=== PATIENT | female | born 1970 | race Caucasian/White ===

== ENCOUNTER 2017-12-09 13:53 | Emergency (ER) | payer MEDICAID, SELFPAY ==
[2017-12-09 14:00] VITALS: BP 127/86; PULSE 48; RESP 16; TEMP 36.4; O2SAT 99
--- NOTE | 2017-12-09 14:35 | ED.GENADUL_ITS ---
Discharge Plan Discharge Details Chief Complaint: Chest/Rib Clinical Impression: Contusion of rib on left side Reason For Visit: chest pain Primary Care Provider: ADILENE URBINA ED Provider: Malcolm Interiano Disposition Patient Disposition: HOME Condition: Stable Discharge Instructions Instructions: Rib Contusion (ED) Additional Instructions: if pain continues next week see your primary care provider return to the emergency department for severe worsening pain or new pain such as abdominal pain take 1000mg tylenol and 600mg ibuprofen every 6hours for pain as needed Discharge Data Discharge Physician: Malcolm Interiano Medical Decision Making MDM Narrative Medical decision making narrative: 47 yo female who denies chronic med problems who was on a ladder around 8pm only 1-2 steps when she fell and landed on her left chest, denies hitting her head or loc or vomit since. Has no abdominal pain or tenderness on exam so doubt splenic injury or other acute abdominal injury. Has pain with palpation to the left lateral chest likely due to contusion but will obtain xray to eval for fracture, less likely ptx given normal lung exam xray shows no acute findings, no other new symptoms. Will d/c home and advised she f/u with pcp if pain continues and return precautions given Differential Diagnosis rib contusion, rib fx, ptx Imaging Data Radiologic Study: Attestation: I personally reviewed and interpreted this imaging study as follows: Imaging: X-Ray (chest xray) My impression: no acute findings Radiologist's impression: vrad report reviewed HPI - General Adult General Mode of arrival: ambulatory . Date/Time Provider Initiated Documentation: 12/09/17 14:20 . Limitations to Documentation: no limitations . Information obtained by: patient . History of Present Illness 47 year old F presents to the emergency department with the chief complaint of left chest pain, described as mild, with intensity rated at 3. Quality is described as stabbing, and is localized to the chest. Patient reports no radiation. Patient started experiencing this day(s) (1) and it has been constant. No relieving factors improve symptom(s), No exacerbating factors reported . Patient notes no other symptoms.. Patient did receive the following treatments prior to arrival, NSAID General Stated Complaint: Chest/Rib ELIZABETH: 4 Review of Systems Review of Systems All systems reviewed & are unremarkable except as noted in HPI and below Constitutional Denies chills, Denies fever(s) and Denies weakness Eyes Patient Denies loss of vision ENT Denies change in voice Cardiovascular Reports chest pain and Denies dyspnea Respiratory Denies dyspnea Gastrointestinal Denies abdominal pain, Denies nausea and Denies vomiting Genitourinary Denies dysuria Musculoskeletal Denies joint swelling Integumentary/Breasts Denies rash Neurologic Denies loss of vision and Denies weakness Psychiatric Denies depression Endocrine Denies cold intolerance and Denies heat intolerance Allergic/Immunologic Reports urticaria PFSH Social History Smoking/Tobacco Use Status: Never Exam Const General: no acute distress Orientation: alert HENMT Head: normal to inspection Ears: external ears normal General nose exam: external nose normal Mouth: moist mucous membranes Eyes General: appearance normal, both eyes and all related structures Neck Neck: normal visual inspection Chest Chest: normal inspection of the chest and other (pain with palpation to the left lateral chest in mid axillary line) Resp Effort & Inspection: normal respiratory effort, able to speak in complete sentences, no audible wheezes, no cough, no respiratory distress and no use of accessory muscles Cardio Jugular venous pressure: no JVD Rate: regular rate Rhythm: regular rhythm Heart Sounds: no murmurs Skin General skin exam: no rashes or lesions noted Neuro General: alert and oriented x3 Extrem General: normal to inspection Psych Mental Status: mental status grossly normal Course Vital Signs Temperature 36.4 C L 12/09/17 14:00 Pulse 48 L 12/09/17 14:00 Respiratory Rate 16 12/09/17 14:00 Blood Pressure 127/86 12/09/17 14:00 Pulse Oximetry 99 12/09/17 14:00 Temperature 36.4 C L 12/09/17 14:00 Pulse 48 L 12/09/17 14:00 Respiratory Rate 16 12/09/17 14:00 Blood Pressure 127/86 12/09/17 14:00 Pulse Oximetry 99 12/09/17 14:00
[2017-12-09] MEDS: Ibuprofen 600 MG TAB PO (15:00)
--- NOTE | 2017-12-09 15:17 | DI.RAD_ITS ---
SYMPTOMS/DIAGNOSIS: CHEST PAIN PA AND LATERAL CHEST: There are no prior comparison exams. The heart size is normal. The aorta is slightly tortuous. The lungs appear clear. No infiltrate, effusion or pneumothorax is seen. The thoracic spine appears intact. IMPRESSION: Negative chest x-ray.
[2017-12-09 16:00] VITALS: BP 126/61; PULSE 74; RESP 16; TEMP 36.7; O2SAT 97
--- NOTE | 2017-12-09 16:01 | DI.VRAD_ITS ---
EXAM: XR Chest, 2 Views CLINICAL HISTORY: 47 years old, female; Pain; Chest pain; Type not specified; Patient HX: Cp TECHNIQUE: Frontal and lateral views of the chest. COMPARISON: No relevant prior studies available. FINDINGS: Lungs: Hyperinflated lungs without infiltrates or masses. Pleural space: Unremarkable. No pneumothorax. Heart: The heart is borderline enlarged. Mediastinum: Unremarkable. Bones/joints: Unremarkable. Vasculature: Mild aortic ectasia IMPRESSION: No acute findings. Dictated and Authenticated by: Stacey High MD. Ordering:YESSI STONER MD
== END 2017-12-09 16:08 | disposition home or self-care (01) ==
PROVIDERS: Emergency Provider Emergency Medicine; PCP Naturopath
DX: S20.222A Contusion of left back wall of thorax, initial encounter (principal); W11.XXXA Fall on and from ladder, initial encounter
CPT/HCPCS: 99283; 71046

== ENCOUNTER 2019-12-31 14:14 | Outpatient (REF) | payer OTHER, SELFPAY ==
[2020-01-03 13:38] LABS: Patient Race White; SARS-CoV-2 RNA Undetected (Undetected); SARS-CoV-2 Specimen Source Nasopharynx
== END 2019-12-31 14:34 ==
LOC: NCHCN 14:14
PROVIDERS: PCP Naturopath; Visit Provider Nurse Practitioner Family
DX: R51 Headache (principal)
CPT/HCPCS: U0003

== ENCOUNTER 2021-04-26 15:53 | Outpatient (REF) | payer OTHER, SELFPAY ==
[2021-04-26 17:13] LABS: Anion Gap 12.5 mmol/L (3-11); BUN 10 mg/dL (7-18); CO2 20.5 mmol/L (21.0-32.0); CREATININE 0.8 mg/dL (0.55-1.02); Calculated LDL 168 mg/dL (<100); Chloride 106 mmol/L (98-107); Cholesterol 248 mg/dL (<200); Glucose 90 mg/dL (74-106); HDL Cholesterol 63 mg/dL (40-60); Potassium 4.3 mmol/L (3.5-5.1); Sodium 139 mmol/L (136-145); Triglyceride 87 mg/dL (<150)
== END 2021-04-26 15:54 | disposition home or self-care (01) ==
LOC: NCHCN 15:53
PROVIDERS: PCP Naturopath; Visit Provider Nurse Practitioner Family
DX: Z00.00 Encounter for general adult medical examination without abnormal findings (principal); Z13.220 Encounter for screening for lipoid disorders
CPT/HCPCS: 80048; 80061

== ENCOUNTER 2023-05-02 08:44 | Outpatient (REF) | payer BC, SELFPAY ==
--- OUTSIDE RECORDS SUMMARY | 2023-05-02 08:46 | XMS_ITS | CCD ---
Author Name Unknown Address [address] [place] [address] [id number] Organization Unknown Address [address] [place] [address] [phone] Care Team Providers Care Cafe Team Member Name Role Phone LAURIE MONTERO Attending Physician [phone] Vital Signs Unknown or Not Available. Allergies Allergy Code Allergy Type Reaction Status PENICILLINS (CLASS) 0 Drug allergy Act cherie Procedures Unknown or Not Available. History of Immunizations Unknown or Not Available. Problems Unknown or Not Available. Results Unknown or Not Available. Active Medications Unknown or Not Available. Medications Administered During Visit Unknown or Not Available. Encounters Encounter Diagnosis Diagnosis Code Start Date Pain in right hip [id number] 05/12/2022 Social History Smoking Status Code Start Date End Date Current every day smoker [id number] Patient Decision Aids Unknown or Not Available. Discharge Instructions You were admitted to [facility] on 05/12/2022 08:00 with a principal diagnosis of Pain in right hip You were discharged from [facility] on 08/07/2022 10:05 Should you have any questions prior to discharge, please contact a member of your healthcare team. If you have left the hospital and have any questions, please contact your primary care physician. Chief Complaint and Reason For Visit Unknown or Not Available. Function Status Unknown or Not Available. Plan of Care Unknown or Not Available. Referral/Transition of Care Unknown or Not Available.
--- OUTSIDE RECORDS SUMMARY | 2023-05-02 08:46 | XMS_ITS | CCD ---
Author Name Unknown Address [address] [place] [address] [phone] Organization Unknown Address [address] [place] [address] [phone] Care Team Providers Care Metallurgy Teacher Name Role Phone LAURIE MONTERO Attending Physician [phone] Vital Signs Unknown or Not Available. Allergies Allergy Code Allergy Type Reaction Status PENICILLINS (CLASS) 0 Drug allergy Act cherie Procedures Unknown or Not Available. History of Immunizations Unknown or Not Available. Problems Unknown or Not Available. Results Unknown or Not Available. Active Medications Unknown or Not Available. Medications Administered During Visit Unknown or Not Available. Encounters Encounter Diagnosis Diagnosis Code Start Date Solitary cyst of left breast [id number] Social History Smoking Status Code Start Date End Date Current every day smoker [id number] Patient Decision Aids Unknown or Not Available. Discharge Instructions You were admitted to [facility] on 05/31/2021 08:47 with a principal diagnosis of Solitary cyst of left breast You were discharged from [facility] on 05/31/2021 08:47 Should you have any questions prior to [...]
--- OUTSIDE RECORDS SUMMARY | 2023-05-02 08:47 | XMS_ITS | CCD ---
Author Name Unknown Address [address] [place] [address] [phone] Organization Unknown Address [address] [place] [address] [phone] Care Team Providers Care Library Assistant Name Role Phone LAURIE MONTERO Attending Physician [phone] Vital Signs Unknown or Not Available. Allergies Allergy Code Allergy Type Reaction Status PENICILLINS (CLASS) 0 Drug allergy Act cherie Procedures Unknown or Not Available. History of Immunizations Unknown or Not Available. Problems Unknown or Not Available. Results Unknown or Not Available. Active Medications Unknown or Not Available. Medications Administered During Visit Unknown or Not Available. Encounters Encounter Diagnosis Diagnosis Code Start Date Screening mammography [id number] 05/26/2021 Social History Smoking Status Code Start Date End Date Current every day smoker [id number] Patient Decision Aids Unknown or Not Available. Discharge Instructions You were admitted to [facility] on 05/26/2021 15:15 with a principal diagnosis of Encounter for screening mammogram for malignant neoplasm of breast You were discharged from [facility] on 05/26/2021 15:15 Should you have any questions prior to discharge, please contact a member of your healthcare team. If you have left the hospital and have any questions, please contact your primary care physician. Chief Complaint and Reason For Visit Chief Complaint Date of Onset SCREENING Function Status Unknown or Not Available. Plan of Care Unknown or Not Available. Referral/Transition of Care Unknown or Not Available.
[2023-05-02 15:30] LABS: ALT 21 U/L (14-59); AST 19 U/L (15-37); Albumin 3.4 g/dL (3.4-5.0); Alkaline Phosphatase 42 U/L (46-116); Anion Gap 8.1 mmol/L (3-11); BUN 8 mg/dL (7-18); Bilirubin, Total 0.4 mg/dL (0.2-1.0); CO2 24.9 mmol/L (21.0-32.0); CREATININE 0.7 mg/dL (0.55-1.02); Calcium 8.8 mg/dL (8.5-10.1); Calculated LDL 148 mg/dL (<100); Chloride 106 mmol/L (98-107); Cholesterol 233 mg/dL (<200); Estimated GFR 104.65 (mL/min/1.73m2); Glucose 101 mg/dL (74-106); HDL Cholesterol 64 mg/dL (40-60); Potassium 4.2 mmol/L (3.5-5.1); Sodium 139 mmol/L (136-145); Triglyceride 108 mg/dL (<150)
== END 2023-05-02 08:45 | disposition home or self-care (01) ==
LOC: NCHCN 08:44
PROVIDERS: PCP Naturopath; Visit Provider Nurse Practitioner Family
DX: Z00.00 Encounter for general adult medical examination without abnormal findings (principal); Z13.220 Encounter for screening for lipoid disorders; Z13.228 Encounter for screening for other metabolic disorders
CPT/HCPCS: 80053; 80061

== ENCOUNTER 2023-05-07 11:31 | Outpatient (REF) | payer BC, SELFPAY ==
--- NOTE | 2023-05-07 08:45 | PAPFT_PTH ---
PATIENT: Sierra Verma V LOC: [facility] U#:[id number] AGE/SX: 52/F ROOM: RE05/07/[address]: Malika Ruelas : 1970 BED: DIS: 05/07/2023 SPEC #: [id number] RECD: 05/07/23 18:28 STATUS: ROBBIN REMarlen #: [id number] VITALIY: 05/07/23 08:[address]: Malika Ruelas DEPT: [facility] Cytology RECD BY: Linda Nunez ENTERED: 05/07/23 18:28 SP TYPE: PAPFT OTHR DR: Campbell Wise Tissues: 1 - CX/ENDOCX FOR PAP SMEARS Procedures: PAP THIN PREP/U[facility] Screening HPV DNA PROBE Comments: [id number] (CHLAMYDIA/GC)
[2023-05-08 14:33] LABS: Chlamydia Result Negative (Negative); GC Result Negative (Negative)
== END 2023-05-07 11:32 | disposition home or self-care (01) ==
LOC: NCHCN 11:31
PROVIDERS: PCP Naturopath; Visit Provider Nurse Practitioner Family
DX: Z00.00 Encounter for general adult medical examination without abnormal findings (principal)
CPT/HCPCS: 87491; 87591; 88142; 87624